=== PATIENT | male | born 1960 | race Caucasian/White ===

== ENCOUNTER 2018-10-27 18:02 | Emergency (ER) | payer OTHER ==
[~2018-10-27] VITALS: Ht 182.9 cm; Wt 72.6 kg
[2018-10-27 18:04] VITALS: Ht 182.9 cm; Wt 72.6 kg
[2018-10-27 18:45] VITALS: BP 132/86
[2018-10-27 19:31] LABS: PLATELET COUNT 360 x10^3mcL (130-400)
[2018-10-27 19:38] LABS: ALBUMIN 3.5 g/dL (3.4-5.0); BILIRUBIN TOTAL 0.34 mg/dL (0.20-1.00); CALCIUM 8.1 mg/dL (8.5-10.1); CARBON DIOXIDE 16.2 mmol/L (21-32); POTASSIUM SERUM 4.4 mmol/L (3.5-5.1); TOTAL PROTEIN, SERUM 7.3 g/dL (6.4-8.2)
[2018-10-27 19:45] LABS: CREATININE SERUM 10.8 mg/dL (0.7-1.3)
[2018-10-27 20:00] LABS: BASOPHIL % 0 % (0-2); RED CELL DISTRIBUTION WIDTH 20.2 % (11.5-14.5)
[2018-10-27 20:09] LABS: rbc morphology (normal/abnorm) ABNORMAL (NORMAL)
[2018-10-27 20:55] LABS: UA SPECIFIC GRAVITY 1.025 (1.005-1.035); microscopic required? YES; urine erythrocyte 2+ (NEGATIVE)
[2018-10-27 21:41] VITALS: BP 105/65
== END 2018-10-27 22:02 | disposition short-term general hospital (02) ==
LOC: ED 18:02
PROVIDERS: Emergency Medicine
DX: I24.9 Acute ischemic heart disease, unspecified (principal); N17.9 Acute kidney failure, unspecified
CPT/HCPCS: 36600; 83880; J1644; J2543; J2704; J2930; J3010; J3370; J3490; J7030; J7613; J7644; Q0092